=== PATIENT | male | born 1985 | race Caucasian/White ===

== ENCOUNTER 2016-12-21 11:15 | Emergency (ER) | payer OTHER ==
[2016-12-21] MEDS ORDERED: NS 1,000 ML IV ONE (11:30)
--- NOTE | 2016-12-21 11:47 | EDPHY ---
H & P Stated Complaint: Light headed for 1 week, SOB, weakness, blurry vision Sent by HPI/ROS: CHIEF COMPLAINT: Lightheadedness HISTORY OF PRESENT ILLNESS: The patient is a 31 y/o male, with a history of asthma, complaining of persistent lightheadedness and generalized weakness for the last week. He began to notice symptoms last week while he was attending a wedding in the [facility]. He developed lightheadedness and felt over[place] the [place], but attributed his symptoms to drinking a lot of alcohol and staying up late and figured symptoms would resolve when he returned to normal habits at home. However, he continues to feel lightheaded and weak, particularly in the morning. He's had a few episodes where he feels near- syncopal. Last night his woke him up because she believed he was having trouble breathing. He thinks he has sleep apnea. He denies episodes of shortness of breath during the day, but did decide to use his inhaler this morning and took 0.25mg Xanax for anxiety, which did not alleviate his symptoms. He decreased his Adderall use since symptom onset. Symptoms are aggravated by caffeine and moving from sitting to standing. He does not notice lightheadedness or dyspnea while lying flat. He sometimes experiences associated hot flashes and diaphoresis. He denies fever, chest pain, vomiting, syncope REVIEW OF SYSTEMS: Constitutional: No fever, no chills Eyes: No visual changes ENT: No sore throat Respiratory: see HPI Cardiac: No chest pain Gastrointestinal: No nausea, no vomiting, no abdominal pain Genitourinary: No hematuria, no dysuria Musculoskeletal: No leg pain or swelling Skin: No rash Neurological: see HPI Psychiatric: No depression - Medical/Surgical History PMH: PMH includes: 1. Asthma 2. Arrhythmia - "pure bigeminy" 3. ADHD - Adderall Hx Asthma: Yes Hx Chronic Respiratory Disease: No Hx Diabetes: No Hx Cardiac Disease: No Hx Renal Disease: No Hx Cirrhosis: No Hx Alcoholism: No Hx HIV/AIDS: No Hx Splenectomy or Spleen Trauma: No Other PMH: ADHD, Asthma, arrythmia. - Social History Smoking Status: Never smoked Additional Social History: Lives in [place]. Nonsmoker. No illicit drug use. . PCP: Dr. Padilla. - Physical Exam Exam: General Appearance: Alert, no distress, hypertensive 163/86. Eyes: Pupils equal and round, no conjunctival pallor or injection, no nystagmus ENT, Mouth: Mucous membranes moist Neck: Normal inspection, no bruit Respiratory: Lungs are clear to auscultation Cardiovascular: Regular rate and rhythm, no murmur Gastrointestinal: Abdomen is soft and non- michell Neurological: Alert, oriented x3, cranial nerves II through XII intact, motor 5 /5, sensory intact to light touch, normal gait Skin: Warm and dry, no rash Extremities: Nontender, no pedal edema Psychiatric: Mood and affect normal Constitutional: Initial Vital Signs Temperature (C) 36.5 C 12/21/16 11:21 Heart Rate 92 12/21/16 11:21 Respiratory Rate 16 12/21/16 11:21 Blood Pressure 163/86 H 12/21/16 11:21 O2 Sat (%) 100 12/21/16 11:21 O2 Delivery Mode Room Air Allergies/Adverse Reactions: No Known Allergies Allergy (Unverified 11/16/09 19:31) Home Medications: Medication Instructions Recorded Adderall 40 Mg Tab 01/27/10 Albuterol Sulf 07/09/10 Temazepam 12/21/16 amLODIPine BESYLATE [Norvasc 2.5 2.5 mg PO DAILY #20 tab 12/21/16 mg (*)] Medical Decision Making ED Course/Re-evaluation: This is a 31 y/o male with a history of asthma who presents for vague waxing and waning lightheadedness over the last week since visiting the [facility]. He is neurovascularly intact with no signs of vertigo, severe neurologic process, or infectious process. Plan for IV fluids, basic labs, and EKG. Will recheck his blood pressure as it is somewhat high and could be causing the dizziness. The 12 lead EKG was interpreted by myself. Sinus rhythm rate 92 with single PVC. See hard copy and/or "tracemaster" electronic copy for interpretation. Reassessed patient and discussed work up. Labs and EKG are unremarkable. His BP has trended between 147/93 and 195/100 while here. He tells me his blood pressure has been high at recent doctors visits. High blood pressure is likely the cause of his symptoms. We will started him on Norvasc here and I've recommended following up with his PCP on Saturday. Return precautions given. He is comfortable with this plan. Differential Diagnosis: Dizziness including but not limited to peripheral and central causes of vertigo , orthostatic causes including dehydration, and blood loss. - Data Points Laboratory Results: Laboratory Results 12/21/16 11:44 12/21/16 11:44 Medications Given: Discontinued Medications Sodium Chloride (Ns) 1,000 mls @ 0 mls/hr IV ONCE ONE; Wide Open PRN Reason: Protocol Stop: 12/21/16 11:31 Last Admin: 12/21/16 12:15 Dose: 1,000 mls Departure - Departure Disposition: Home, Routine, Self-Care Clinical Impression: Lightheadedness Hypertension Qualifiers: Hypertension type: essential hypertension Qualified Code(s): I10 - Essential ( primary) hypertension Condition: Good Instructions: Amlodipine (By mouth), Hypertension (ED), Lightheadedness (ED) Additional Instructions: Take Norvasc as prescribed for hypertension. Follow up with Dr. Padilla on Saturday. Return to the ED for severe headache, fainting, weakness or numbness on one side of your body, or other worsening of condition. Referrals: Carlos Padilla MD [Primary Care Provider] - As per Instructions Prescriptions: amLODIPine BESYLATE [Norvasc 2.5 mg (*)] 2.5 mg PO DAILY #20 tab Report Scribed for: Iesha Guillen Report Scribed by: Marija Walker Date of Report: 12/21/16 Time of Report: 11:30 Physician Review and Approval Statement: 12/21/16 11:30 Portions of this note were transcribed by a medical records receptionist. I personally performed a history, physical exam, medical decision making, and confirmed accuracy of information the transcribed note.
[2016-12-21 11:51] LABS: % IMMATURE GRANULYOCYTES 0.5 % (0.0-1.1); ABSOLUTE IMMATURE GRANULOCYTES 0.03 10^3/uL (0.00-0.10); ADD DIFF? NO; ADD MORPH? NO; ADD SCAN? NO; ATYPICAL LYMPHOCYTE FLAG 20 (0-99); FRAGMENT RBC FLAG 0 (0-99); HEMATOCRIT 48.1 % (40.0-51.0); HEMOGLOBIN 16.5 g/dL (13.7-17.5); LEFT SHIFT FLG 0 (0-99); LIPEMIA HEMOLYSIS FLAG 90 (0-99); MEAN CELL HEMOGLOBIN 30.7 pg (27.9-34.1); MEAN CELL HEMOGLOBIN CONCENTR. 34.3 g/dL (32.4-36.7); MEAN CELL VOLUME 89.4 fL (81.5-99.8); MEAN PLATELET VOLUME 9.3 fL (8.7-11.7); PLATELET CLUMPS FLAG 0 (0-99); PLATELET COUNT 249 10^3/uL (150-400); RED BLOOD CELL COUNT 5.38 10^6/uL (4.40-6.38)
--- NOTE | 2016-12-21 11:53 | CPEKG ---
Heart Rate: 92 RR Interval: 652 P-R Interval: 138 QRSD Interval: 86 QT Interval: 348 QTC Interval: 431 P Parachute: 36 QRS Parachute: 60 T Wave Parachute: 49 EKG Severity - NORMAL ECG - EKG Impression: SINUS RHYTHM EKG Impression: PVC Electronically Signed By: Iesha Guillen 21-Dec-2016 13:48:51
[2016-12-21 12:10] LABS: ANION GAP 13 mEq/L (8-16); CALCIUM 10.1 mg/dL (8.5-10.4); CARBON DIOXIDE 25 mEq/l (22-31); CHLORIDE 102 mEq/L (97-110); CREATININE 1.1 mg/dL (0.7-1.3); GLOMERULAR FILTRATION RATE > 60; GLUCOSE 77 mg/dL (70-100); POTASSIUM 4.6 mEq/L (3.5-5.2); SODIUM 140 mEq/L (134-144)
[2016-12-21 12:46] VITALS: PULSE 85; RESP 18; O2SAT 96
[2016-12-21 13:00] VITALS: BP 149/94; TEMP 98.2
== END 2016-12-21 12:58 | disposition home or self-care (01) ==
DX: R42 Dizziness and giddiness (principal); I10 Essential (primary) hypertension; J45.909 Unspecified asthma, uncomplicated

== ENCOUNTER 2017-01-05 08:37 | Day surgery (SDC) | payer OTHER ==
[~2017-01-05 08:37] MED LIST: HYDROCODONE/APAP 5/325 TAB PO SCH
[2017-01-05] MEDS ORDERED: NS 1,000 ML IV ONE ×2 (09:05→11:00)
[2017-01-05] MEDS ORDERED: HYDROmorphONE/DILAUDID 1 MG/ML SYR IVP ONE ×3 (09:05→12:33)
[2017-01-05] MEDS ORDERED: ONDANSETRON 4 MG/2 ML VIAL IVP ONE (09:05)
[2017-01-05 09:15] LABS: % IMMATURE GRANULYOCYTES 0.4 % (0.0-1.1); ABSOLUTE IMMATURE GRANULOCYTES 0.08 10^3/uL (0.00-0.10); ADD DIFF? NO; ADD MORPH? NO; ADD SCAN? NO; ATYPICAL LYMPHOCYTE FLAG 0 (0-99); FRAGMENT RBC FLAG 0 (0-99); HEMATOCRIT 46.5 % (40.0-51.0); HEMOGLOBIN 16.4 g/dL (13.7-17.5); LEFT SHIFT FLG 0 (0-99); LIPEMIA HEMOLYSIS FLAG 90 (0-99); MEAN CELL HEMOGLOBIN 30.7 pg (27.9-34.1); MEAN CELL HEMOGLOBIN CONCENTR. 35.3 g/dL (32.4-36.7); MEAN CELL VOLUME 87.1 fL (81.5-99.8); MEAN PLATELET VOLUME 9.2 fL (8.7-11.7); PLATELET CLUMPS FLAG 0 (0-99); PLATELET COUNT 272 10^3/uL (150-400); RED BLOOD CELL COUNT 5.34 10^6/uL (4.40-6.38); RED CELL DISTRIBUTION WIDTH 12.2 % (11.5-15.2)
[2017-01-05 09:34] LABS: ALANINE AMINOTRANSFERASE 32 IU/L (21-72); ALBUMIN 4.5 g/dL (3.5-5.0); ALKALINE PHOSPHATASE 48 IU/L (38-126); ANION GAP 16 mEq/L (8-16); ASPARTATE AMINOTRANSFERASE 16 IU/L (17-59); BILIRUBIN,TOTAL 1.5 mg/dL (0.1-1.4); CALCIUM 9.4 mg/dL (8.5-10.4); CARBON DIOXIDE 24 mEq/l (22-31); CHLORIDE 97 mEq/L (97-110); CREATININE 0.9 mg/dL (0.7-1.3); GLOMERULAR FILTRATION RATE > 60; GLUCOSE 96 mg/dL (70-100); POTASSIUM 4.3 mEq/L (3.5-5.2); SODIUM 137 mEq/L (134-144); TOTAL PROTEIN 7.2 g/dL (6.3-8.2)
[2017-01-05 11:28] LABS: COLOR YELLOW; LEUKOCYTE ESTERASE,URINE NEGATIVE (NEGATIVE); NITRITE,URINE NEGATIVE (NEGATIVE)
[2017-01-05] MEDS ORDERED: ERTAPENEM 1 GM in NS 100 ML IV ONE (11:31)
[2017-01-05] MEDS ORDERED: IOPAMIDOL (ISOVUE-300) 100 ML BTL ONE (11:40)
--- NOTE | 2017-01-05 13:08 | EDPHY ---
H & P Stated Complaint: epigastric pain x3 days,increased abd pain-generalized and flank pain Time Seen by Provider: 01/05/17 08:50 HPI/ROS: This patient complains of abdominal pain. Explains that evening, 2 and half days ago he developed gradual onset of generalized abdominal pains described as crampy in nature. Over the ensuing couple days the pain has become more constant rather than intermittent and he now notices some pain in the lower abdomen as well or as it was primarily periumbilical in upper belly before that. The intensity the pain is now 8/10 this morning and worsens with movement. He has not had this pain before. He states that radiates to both flanks. He has had nothing to eat today. He reports some anorexia and nausea but no vomiting. He is brought in by private vehicle by his for further evaluation. ROS: Constitutional: Low-grade subjective fevers over the past several hours. No high fevers or chills. HEENT: URI symptoms last month and a mild cough that have nearly resolved now. Pulmonary: Rare residual cough. No shortness of breath or pleuritic pain. Cardiovascular: No chest pain. No heart palpitations or lightheadedness. GI: Nausea but no vomiting. No diarrhea. He reports normal bowel movements. Last meal was brought last night : He reports mild ache to both testicles but has noticed testicular swelling or tenderness. No urethral discharge. Endocrine: No complaints Integumentary: No skin rash 10 point ROS is otherwise negative Source: Patient Exam Limitations: No limitations - Medical/Surgical History Hx Asthma: Yes Hx Chronic Respiratory Disease: No Hx Diabetes: No Hx Cardiac Disease: No Hx Renal Disease: No Hx Cirrhosis: No Hx Alcoholism: No Hx HIV/AIDS: No Hx Splenectomy or Spleen Trauma: No Other PMH: ADHD, Asthma, arrythmia. Surg-none - Family History Significant Family History: No pertinent family hx - Social History Smoking Status: Never smoked Alcohol Use: Occasionally Drug Use: None - Physical Exam Exam: General Appearance: Alert, no distress. Eyes: Pupils equal and round no pallor or injection. ENT, Mouth: Mucous membranes moist. Respiratory: There are no retractions, lungs are clear to auscultation. Cardiovascular: Regular rate and rhythm. Gastrointestinal: Normoactive, soft, moderate epigastric tenderness and moderate right lower quadrant tenderness. No guarding or rebound. No organomegaly. Rovsing's is negative. : Circumcised penis with no urethral discharge. No testicular swelling or tenderness. No evidence of inguinal hernia on exam. Back: No CVA tenderness Neurological: Alert with no focal deficits Skin: Warm and dry, no rashes. Musculoskeletal: Neck is supple nontender. Extremities are symmetrical, full range of motion. Psychiatric: Mood and affect are normal DIFFERENTIAL DIAGNOSIS: After history and physical exam differential diagnosis was considered for pancreatitis, gastritis, ulcer, appendicitis, pyelonephritis , diverticulitis, prostatitis Constitutional: Initial Vital Signs Temperature (C) 36.5 C 01/05/17 08:38 Heart Rate 84 01/05/17 08:38 Respiratory Rate 16 01/05/17 08:38 Blood Pressure 151/90 H 01/05/17 08:38 O2 Sat (%) 95 01/05/17 08:38 O2 Delivery Mode Room Air Allergies/Adverse Reactions: No Known Allergies Allergy (Verified 01/05/17 08:51) Home Medications: Medication Instructions Recorded Adderall 40 Mg Tab 01/27/10 Albuterol Sulf 07/09/10 Lisinopril 01/05/17 Medical Decision Making - Diagnostics Imaging Results: Imaging Impressions Abdomen CT 01/05/17 11:31 Impression: 1. Acute appendicitis with appendicolith and thickening up to 12 mm. 2. No drainable abscess, pneumoperitoneum, or bowel obstruction. Findings and recommendations discussed with Emergency Department physician, Braden Caballero, at 1228 hours on January 05, 2017. Final report concurs with initial preliminary interpretation. Imaging: Discussed imaging studies w/ bingo caller Radiologist ED Course/Re-evaluation: IV, Zofran with resolution of nausea, Dilaudid IV with partial relief of pain 2 L normal saline bolus Patient kept NPO Ertapenem 1 g IV Toradol IV I counseled patient regarding his CT findings and the plan for transfer for surgery I spoke with Dr. Andrey Hastings, surgeon on-call at [facility] accepts patient for transfer. I spoke with Jaswinder Chaudhry-emergency physician who accepts patient for transfer. Discussion: Acute appendicitis without evidence of perforation or other complications - Data Points Laboratory Results: Laboratory Results 01/05/17 09:10 01/05/17 09:10 01/05/17 01/05/17 01/05/17 11:22 09:10 09:10 WBC 19.65 10^3/uL H 10^3/uL (3.80-9.50) RBC 5.34 10^6/uL 10^6/uL (4.40-6.38) Hgb 16.4 g/dL g/dL (13.7-17.5) Hct 46.5 % % (40.0-51.0) MCV 87.1 fL fL (81.5-99.8) MCH 30.7 pg pg (27.9-34.1) MCHC 35.3 g/dL g/dL (32.4-36.7) RDW 12.2 % % (11.5-15.2) Plt Count 272 10^3/uL 10^3/uL (150-400) MPV 9.2 fL fL (8.7-11.7) Neut % (Auto) 87.2 % H % (39.3-74.2) Lymph % (Auto) 5.5 % L % (15.0-45.0) [place] % (Auto) 6.6 % % (4.5-13.0) Eos % (Auto) 0.1 % L % (0.6-7.6) Baso % (Auto) 0.2 % L % (0.3-1.7) Nucleat RBC Rel Count 0.0 % % (0.0-0.2) Absolute Neuts (auto) 17.13 10^3/uL H 10^3/uL (1.70-6.50) Absolute Lymphs (auto) 1.09 10^3/uL 10^3/uL (1.00-3.00) Absolute Monos (auto) 1.30 10^3/uL H 10^3/uL (0.30-0.80) Absolute Eos (auto) 0.01 10^3/uL L 10^3/uL (0.03-0.40) Absolute Basos (auto) 0.04 10^3/uL 10^3/uL (0.02-0.10) Absolute Nucleated RBC 0.00 10^3/uL 10^3/uL (0-0.01) Immature Gran % 0.4 % % (0.0-1.1) Immature Gran # 0.08 10^3/uL 10^3/uL (0.00-0.10) Sodium 137 mEq/L mEq/L (134-144) Potassium 4.3 mEq/L mEq/L (3.5-5.2) Chloride 97 mEq/L mEq/L (97-110) Carbon Dioxide 24 mEq/l mEq/l (22-31) Anion Gap 16 mEq/L mEq/L (8-16) BUN 9 mg/dL mg/dL (7-23) Creatinine 0.9 mg/dL mg/dL (0.7-1.3) Estimated GFR > 60 Glucose 96 mg/dL mg/dL (70-100) Calcium 9.4 mg/dL mg/dL (8.5-10.4) Total Bilirubin 1.5 mg/dL H mg/dL (0.1-1.4) AST 16 IU/L L IU/L (17-59) ALT 32 IU/L IU/L (21-72) Alkaline Phosphatase 48 IU/L IU/L (38-126) Total Protein 7.2 g/dL g/dL (6.3-8.2) Albumin 4.5 g/dL g/dL (3.5-5.0) Lipase 98.0 IU/L IU/L (23-300) Urine Color YELLOW Urine Appearance CLEAR Urine pH 6.0 (5.0-7.5) Ur Specific [place] 1.020 (1.002-1.030) Urine Protein NEGATIVE (NEGATIVE) Urine Ketones 2+ H (NEGATIVE) Urine Blood NEGATIVE (NEGATIVE) Urine Nitrate NEGATIVE (NEGATIVE) Urine Bilirubin NEGATIVE (NEGATIVE) Urine Urobilinogen 0.2 EU EU (0.2-1.0) Ur Leukocyte Esterase NEGATIVE (NEGATIVE) Urine Glucose NEGATIVE (NEGATIVE) Medications Given: Discontinued Medications Hydromorphone HCl (Dilaudid) 0.5 mg IVP EDNOW ONE Stop: 01/05/17 09:06 Last Admin: 01/05/17 09:52 Dose: 0.5 mg Hydromorphone HCl (Dilaudid) 0.2 mg IVP EDNOW ONE Stop: 01/05/17 11:27 Last Admin: 01/05/17 11:33 Dose: 0.2 mg Hydromorphone HCl (Dilaudid) 0.4 mg IVP EDNOW ONE Stop: 01/05/17 12:34 Last Admin: 01/05/17 12:53 Dose: 0.4 mg Sodium Chloride (Ns) 1,000 mls @ 0 mls/hr IV ONCE ONE; Wide Open PRN Reason: Protocol Stop: 01/05/17 09:06 Last Admin: 01/05/17 09:50 Dose: 1,000 mls Ertapenem 1 gm/ Sodium (Chloride) 100 mls @ 200 mls/hr IV EDNOW ONE PRN Reason: Protocol Stop: 01/05/17 12:00 Last Admin: 01/05/17 12:55 Dose: 100 mls Sodium Chloride (Ns) 1,000 mls @ 0 mls/hr IV ONCE ONE PRN Reason: Wide Open Stop: 01/05/17 11:01 Last Admin: 01/05/17 11:00 Dose: 1,000 mls Ketorolac Tromethamine (Toradol) 30 mg IVP EDNOW ONE Stop: 01/05/17 13:15 Last Admin: 01/05/17 13:32 Dose: 30 mg Ondansetron HCl (Zofran) 4 mg IVP EDNOW ONE Stop: 01/05/17 09:06 Last Admin: 01/05/17 09:51 Dose: 4 mg Departure - Departure Disposition: [facility] Inpatient Acute Clinical Impression: Acute appendicitis Qualifiers: Acute appendicitis type: unspecified acute appendicitis type Qualified Code(s) : K35.80 - Unspecified acute appendicitis Condition: Good Instructions: Acute Abdominal Pain (ED) Additional Instructions: Diagnosis: Acute appendicitis Plan: to drive you directly to [facility] Emergency Department for evaluation by the surgeon-Dr. Andrey Hastings Nothing to eat or drink, on the way. Referrals: Carlos Padilla MD [Primary Care Provider] - As per Instructions
[2017-01-05] MEDS ORDERED: KETOROLAC 30 MG/1 ML SDV IVP ONE (13:14)
[2017-01-05] MEDS ORDERED: LR 1,000 ML IV ONE (15:28)
[2017-01-05] MEDS ORDERED: MIDAZOLAM 2 MG/2 ML VIAL IVP ONE (15:34)
--- NOTE | 2017-01-05 15:35 | PDCONSULT ---
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 Initial pain in the epigastric region localized in the right lower quadrant associated with fever and chills subjectively the patient denies any nausea or vomiting mildly anorexic since last night. The patient's last meal was broth last night and his last thing to drink was water early in the morning. Currently the patient complains of 7-8/10 pain especially with movement or palpation. Seen initially at [facility] with diagnosis of appendicitis by CT scan, clinical exam and laboratory findings[place] [address] and 12 mm appendix with a fecalith. Past medical history: Asthma, pneumonia time 7 last 3 years ago, hypertension newly diagnosed 2 weeks ago on lisinopril per PCP Past surgical history: No abdominal surgery Medications Lisinopril No known drug allergies Family history significant for hypertension in both mother and father. Denies GI malignancies Review of systems: Significant for cough productive of phlegm over the last several days, recent travel, recently diagnosed hypertension with associated dizziness and malaise. All others reviewed and are negative Temp Pulse Resp BP Pulse Ox 36.6 C 80 16 148/85 H 96 01/05/17 15:21 01/05/17 15:21 01/05/17 15:21 01/05/17 15:21 01/05/17 15:21 Regular rate and rhythm Clear to auscultation bilaterally Abdomen soft tender in the right lower quadrant McBurney's point with positive rebound No hepatosplenomegaly No peripheral edema Alert oriented appropriate Nonfocal neurologic exam No rashes Oropharynx moist without lesions Trachea midline, no JVD thyromegaly CT scan was personally reviewed on PACS I agree with the findings of acute appendicitis Imaging Impressions Abdomen CT 01/05/17 11:31 Impression: 1. Acute appendicitis with appendicolith and thickening up to 12 mm. 2. No drainable abscess, pneumoperitoneum, or bowel obstruction. Findings and recommendations discussed with Emergency Department physician, Braden Caballero, at 1228 hours on January 05, 2017. Final report concurs with initial preliminary interpretation. Laboratory Results 01/05/17 09:10 01/05/17 09:10 01/05/17 01/05/17 01/05/17 11:22 09:10 09:10 WBC 19.65 10^3/uL H 10^3/uL (3.80-9.50) RBC 5.34 10^6/uL 10^6/uL (4.40-6.38) Hgb 16.4 g/dL g/dL (13.7-17.5) Hct 46.5 % % (40.0-51.0) MCV 87.1 fL fL (81.5-99.8) MCH 30.7 pg pg (27.9-34.1) MCHC 35.3 g/dL g/dL (32.4-36.7) RDW 12.2 % % (11.5-15.2) Plt Count 272 10^3/uL 10^3/uL (150-400) MPV 9.2 fL fL (8.7-11.7) Neut % (Auto) 87.2 % H % (39.3-74.2) Lymph % (Auto) 5.5 % L % (15.0-45.0) [place] % (Auto) 6.6 % % (4.5-13.0) Eos % (Auto) 0.1 % L % (0.6-7.6) Baso % (Auto) 0.2 % L % (0.3-1.7) Nucleat RBC Rel Count 0.0 % % (0.0-0.2) Absolute Neuts (auto) 17.13 10^3/uL H 10^3/uL (1.70-6.50) Absolute Lymphs (auto) 1.09 10^3/uL 10^3/uL (1.00-3.00) Absolute Monos (auto) 1.30 10^3/uL H 10^3/uL (0.30-0.80) Absolute Eos (auto) 0.01 10^3/uL L 10^3/uL (0.03-0.40) Absolute Basos (auto) 0.04 10^3/uL 10^3/uL (0.02-0.10) Absolute Nucleated RBC 0.00 10^3/uL 10^3/uL (0-0.01) Immature Gran % 0.4 % % (0.0-1.1) Immature Gran # 0.08 10^3/uL 10^3/uL (0.00-0.10) Sodium 137 mEq/L mEq/L (134-144) Potassium 4.3 mEq/L mEq/L (3.5-5.2) Chloride 97 mEq/L mEq/L (97-110) Carbon Dioxide 24 mEq/l mEq/l (22-31) Anion Gap 16 mEq/L mEq/L (8-16) BUN 9 mg/dL mg/dL (7-23) Creatinine 0.9 mg/dL mg/dL (0.7-1.3) Estimated GFR > 60 Glucose 96 mg/dL mg/dL (70-100) Calcium 9.4 mg/dL mg/dL (8.5-10.4) Total Bilirubin 1.5 mg/dL H mg/dL (0.1-1.4) AST 16 IU/L L IU/L (17-59) ALT 32 IU/L IU/L (21-72) Alkaline Phosphatase 48 IU/L IU/L (38-126) Total Protein 7.2 g/dL g/dL (6.3-8.2) Albumin 4.5 g/dL g/dL (3.5-5.0) Lipase 98.0 IU/L IU/L (23-300) Urine Color YELLOW Urine Appearance CLEAR Urine pH 6.0 (5.0-7.5) Ur Specific [place] 1.020 (1.002-1.030) Urine Protein NEGATIVE (NEGATIVE) Urine Ketones 2+ H (NEGATIVE) Urine Blood NEGATIVE (NEGATIVE) Urine Nitrate NEGATIVE (NEGATIVE) Urine Bilirubin NEGATIVE (NEGATIVE) Urine Urobilinogen 0.2 EU EU (0.2-1.0) Ur Leukocyte Esterase NEGATIVE (NEGATIVE) Urine Glucose NEGATIVE (NEGATIVE) Impression: Acute appendicitis Hypertension Asthma Plan: Laparoscopic appendectomy the risks benefits and alternatives to surgery have been outlined to the patient and his . All questions were addressed the risks include but are not limited to bleeding, infection, injury to surrounding structures that could require further intervention. Perioperative antibiotics were not required as the patient already received Invanz at urgent care
[2017-01-05] MEDS ORDERED: MIDAZOLAM 2 MG/2 ML VIAL ONE (15:38)
--- NOTE | 2017-01-05 15:38 | PDANEPAE ---
ANE History of Present Illness lap appy for acute appendicitis ANE Past Medical History Past Medical History: acute appendicitis - Cardiovascular History Hx Hypertension: Yes Cardiovascular History Comment: new on set BP, cough from ACEI - Pulmonary History Hx Asthma/Reactive Airway Disease: Yes Hx Oxygen in Use at Home: No Hx Sleep Apnea: Yes Pulmonary History Comment: Hx Rad, none now - Endocrine History Hx Diabetes: No ANE Review of Systems - Exercise capacity Exercise capacity: >=4 METS ANE Patient History - Allergies Allergies/Adverse Reactions: No Known Allergies Allergy (Verified 01/05/17 08:51) - Home Medications Home Medications: Amphet Asp and D/Amphet [Adderall 20 mg (*)] 20 mg PO DAILY 01/05/17 [Last Taken 01/04/17] Bismuth Subsalicylate [Pepto-Bismol oral liquid (*)] 15 ml PO DAILY PRN [Last Taken 01/04/17] Cetirizine [ZyrTEC 10 mg (*)] 10 mg PO DAILY 01/05/17 [Last Taken 01/04/17] Herbals/Supplements -Info Only 1 ea PO DAILY 01/05/17 [Last Taken 01/04/17] Lisinopril [Zestril 10 mg (*)] 10 mg PO DAILY 01/05/17 [Last Taken 01/04/17] Multivitamins [Multivitamin (*)] 1 each PO DAILY 01/05/17 [Last Taken 01/04/17] Sennosides/Docusate Sodium [Senokot-S (OTC)] 1 each PO BID PRN 01/05/17 [Last Taken 01/04/17] Simethicone [Gas-X] 125 mg PO DAILY PRN 01/05/17 [Last Taken 01/04/17] Temazepam [Restoril 15 MG (*)] 15 - 30 mg PO HS 01/05/17 [Last Taken 01/04/17] - NPO status NPO Status: no food or drink >8 hours (solids >8 hrs, liquids >6 hours) NPO Since - Liquids (Date): 01/05/17 NPO Since - Liquids (Time): 07:00 NPO Since - Solids (Date): 01/04/17 NPO Since - Solids (Time): 18:00 - Smoking Hx Smoking Status: Never smoked - Alcohol Use Alcohol Use: Occasionally ANE Labs/Vital Signs - Labs Result Diagrams: 01/05/17 09:10 01/05/17 09:10 - Vital Signs Blood Pressure: 148/85 Heart Rate: 80 Respiratory Rate: 16 O2 Sat (%): 96 Height: 182.88 cm Weight: 88.451 kg ANE Physical Exam - Airway Neck exam: FROM Mallampati Score: Class 1 Mouth exam: normal dental/mouth exam - Pulmonary Pulmonary: no respiratory distress, other (ACEI cough, no URI, etc) - Cardiovascular Cardiovascular: regular rate and rhythym - ASA Status ASA Status: II, E ANE Anesthesia Plan Anesthesia Plan: general endotracheal anesthesia
[2017-01-05] MEDS ORDERED: BUPIVACAINE 0.5% 30 ML SDV ONE (15:41)
[2017-01-05] MEDS ORDERED: LIDOCAINE 1% 300 MG/30 ML SDV ONE (15:41)
[2017-01-05] MEDS ORDERED: fentaNYL 100 MCG/2 ML INJ ONE (15:43)
[2017-01-05] MEDS ORDERED: PROPOFOL/EMULSION 500 MG/50 ML BOTTLE IV ONE (15:43)
[2017-01-05] MEDS ORDERED: DEXAMETHASONE 4 MG/ML VIAL ONE ×2 (15:43)
[2017-01-05] MEDS ORDERED: ONDANSETRON 4 MG/2 ML VIAL ONE (15:43)
[2017-01-05] MEDS ORDERED: LIDOCAINE 2% 5 ML SDV ONE (15:43)
[2017-01-05] MEDS ORDERED: LIDOCAINE HCL 160 MG/4 ML LTA KIT TP ONE (15:43)
[2017-01-05] MEDS ORDERED: ROCURONIUM 50 MG/5 ML VIAL ONE ×2 (15:46→16:15)
[2017-01-05] MEDS ORDERED: LABETALOL HCL 50 MG/10 ML SYR ONE (16:18)
[2017-01-05] MEDS ORDERED: SUGAMMADEX SODIUM 500 MG/5 ML VIAL IVP ONE (16:19)
[2017-01-05] MEDS ORDERED: HYDROCODONE/APAP 5/325 TAB PO PRN (16:38)
[2017-01-05] MEDS ORDERED: ACETAMINOPHEN 500 MG TAB PO PRN (16:38)
[2017-01-05] MEDS ORDERED: LABETALOL HCL 50 MG/10 ML SYR IVP PRN (16:38)
[2017-01-05] MEDS ORDERED: ALBUTEROL 3 ML DEYVIAL IH PRN (16:38)
[2017-01-05] MEDS ORDERED: OXYCODONE/APAP 5/325 TAB PO PRN (16:38)
[2017-01-05] MEDS ORDERED: D5W LR 500 ML IV PRN (16:38)
[2017-01-05] MEDS ORDERED: PROMETHAZINE HCL 25 MG/ML INJ IVP PRN (16:38)
[2017-01-05] MEDS ORDERED: NALOXONE HCL 0.4 MG/ML INJ IVP PRN (16:38)
[2017-01-05] MEDS ORDERED: MEPERIDINE 25 MG/ML SYR IVP PRN (16:38)
[2017-01-05] MEDS ORDERED: METOCLOPRAMIDE 10 MG/2 ML VIAL IVP PRN (16:38)
[2017-01-05] MEDS ORDERED: fentaNYL 100 MCG/2 ML INJ IVP PRN ×2 (16:38)
[2017-01-05] MEDS ORDERED: LR 500 ML IV PRN (16:38)
[2017-01-05] MEDS ORDERED: DEXAMETHASONE 4 MG/ML VIAL IVP PRN (16:38)
[2017-01-05] MEDS ORDERED: ONDANSETRON 4 MG/2 ML VIAL IVP PRN (16:38)
--- NOTE | 2017-01-05 16:56 | POSTOPPROG ---
Post Op Note Date of Operation: 01/05/17 Surgeon: Miko Bridges Forklift Material Handler: ada Anesthesiologist: Wing Anesthesia: GET(General Endotracheal) Pre-op Diagnosis: Acute appendicitis, umbilical hernia Post-op Diagnosis: same Procedure: laparoscopic appendectomy, umbilical hrenia repair Findings: acute appendicitis Inf/Abcess present in the surg proc area at time of surgery?: Yes Depth: Organ Space EBL: Minimal Specimen(s): appendix to permanent pathology
--- NOTE | 2017-01-05 16:59 | POSTANESTH ---
Post Anesthetic Evaluation Cardiovascular Status: Normal, Stable Respiratory Status: Normal, Stable (slight cough) Level of Consciousness/Mental Status: Can Participate in Eval, Alert and Oriented Pain Control: Adequate, Prn Tx Ordered Nausea/Vomiting Control: Adequate, Prn Tx Ordered Complications Possibly Related to Anesthesia: None Noted
[2017-01-05] MEDS ORDERED: ALBUTEROL 3 ML DEYVIAL ONE (17:09)
[2017-01-05 17:40] VITALS: PULSE 82; RESP 14; TEMP 98.4
[2017-01-05] MEDS ORDERED: HYDROCODONE/APAP 5/325 TAB ONE (18:20)
[2017-01-05 18:59] VITALS: BP 129/85; O2SAT 95
--- NOTE | 2017-01-05 19:14 | GOP ---
[f rep st] OPERATIVE REPORT DATE OF OPERATION: SURGEON: Miko Bridges MD ANESTHESIA: General endotracheal anesthesia was used. ANESTHESIOLOGIST: Dr. Rico Dimas PREOPERATIVE DIAGNOSIS: 1. Acute appendicitis. 2. Umbilical hernia. POSTOPERATIVE DIAGNOSIS: 1. Acute appendicitis. 2. Umbilical hernia. PROCEDURE PERFORMED: 1. Laparoscopic appendectomy. 2. Recurrent umbilical hernia repair. FINDINGS: SPECIMENS: Appendix to permanent pathology. DESCRIPTION OF PROCEDURE: The patient was brought into the operating room. After induction of endotracheal anesthesia, in supine position, a time-out procedure was then performed according to institutional standards. Local anesthetic was infused in skin and subcutaneous tissues of the trocar sites and open preperitoneal supraumbilical trocar placement was performed. In doing so, the umbilical hernia is identified dissected from its peritoneum and it is used in gaining access to the abdomen. The abdomen was then insufflated to 15 TOR with carbon dioxide. Working trocars were placed in lower midline under direct visualization ensuring to avoid critical structures. The appendix is dilated and found with some mild amount of suppurative fluid in the right lower quadrant. This is aspirated and the appendix is controlled with its mesentery using a LigaSure bipolar energy device and an an EndoGIA stapler was then used to divide the appendix flush with the base of the cecum. After hemostasis was assured, the appendix was placed into an Endopouch and brought out through the umbilical incision. The umbilical incision/umbilical hernia was then reapproximated using 0 Vicryl [id number] sutures and the skin was reapproximated in all 3 incisions using 4-0 Monocryl. Dermabond was applied. The patient awakened, extubated, taken to recovery room in stable condition. There were no immediate complications. Needle, instrument, and sponge counts were verified to be correct x2. 31-year-old gentleman with history of acute abdominal pain presents to the emergency room from [facility] – [place] with acute appendicitis by CT scan and clinical evaluation. White blood cell count of 19,000. The patient also has a concomitant umbilical hernia completely unrelated. /[id number]/MODL MTDD
== END 2017-01-05 18:35 | disposition home or self-care (01) ==
LOC: CED 08:37 → FSGY 15:05
PROVIDERS: ATTEND Surgery
PROC: 0DTJ4ZZ Resection of Appendix, Percutaneous Endoscopic Approach (ICD-10-PCS; principal; 2017-01-05 14:30)
PROC: 0WQF0ZZ Repair Abdominal Wall, Open Approach (ICD-10-PCS; principal; 2017-01-05 14:30)
DX: K35.80 Unspecified acute appendicitis (principal); K42.9 Umbilical hernia without obstruction or gangrene; J45.909 Unspecified asthma, uncomplicated; I10 Essential (primary) hypertension
CPT/HCPCS: 74177-PO; 80053-PO; 81003-PO; 83690-PO; 85025-PO; J1100; J1170; J1335; J1885; J2250; J2405; J2704; J3010; Q9967